=== PATIENT | male | born 1960 | race African-American/Black ===

== ENCOUNTER 2018-08-28 13:16 | Emergency (ER) | payer MEDICARE, MEDICAID ==
[~2018-08-28] VITALS: Ht 193 cm; Wt 181.0 kg
[2018-08-28] MEDS ORDERED: IPRATROPIUM/ALBUTEROL 0.5-3(2.5)MG/3ML NEB HHN ONE (13:45)
[2018-08-28 17:31] VITALS: BP 156/90
== END 2018-08-28 17:34 | disposition home or self-care (01) ==
LOC: ER 13:16
DX: R06.02 Shortness of breath (principal); J18.9 Pneumonia, unspecified organism; J44.9 Chronic obstructive pulmonary disease, unspecified; E11.22 Type 2 diabetes mellitus with diabetic chronic kidney disease; I48.91 Unspecified atrial fibrillation; I13.0 Hypertensive heart and chronic kidney disease with heart failure and stage 1 through stage 4 chronic kidney disease, or unspecified chronic kidney disease; N18.9 Chronic kidney disease, unspecified; I50.9 Heart failure, unspecified; Z79.01 Long term (current) use of anticoagulants; Z95.0 Presence of cardiac pacemaker
CPT/HCPCS: 71045; 94640; 99283; J7620

== ENCOUNTER 2018-11-10 11:11 | Day surgery (SDC) | payer MEDICARE, MEDICAID ==
[~2018-11-10] VITALS: Ht 190.5 cm; Wt 176.9 kg
[2018-11-10 12:39] LABS: EOSINOPHILS % 3.2 % (0.0-5.0); HEMATOCRIT. 37.6 % (42.0-52.0); HEMOGLOBIN. 12.2 g/dL (14.0-18.0); LYMPHOCYTES % 23.1 % (20.0-50.0); MEAN CORPUSCULAR HEMOGLOBIN 27.2 pg (28.0-32.0); MEAN CORPUSCULAR VOLUME 83.5 fL (80.0-94.0); MEAN PLATELET VOLUME 9.1 fl (7.4-10.4); MONOCYTES % 7.9 % (2.0-8.0); NEUTROPHILS % 64.8 % (40.0-76.0); PLATELET 253 x1000/uL (130-400); RED CELL DISTRIBUTION WIDTH 15.8 % (11.6-14.6)
[2018-11-10] MEDS ORDERED: ROSU20TA29 MT (12:44)
[2018-11-10] MEDS ORDERED: POTA8CAP10 MT (12:44)
[2018-11-10] MEDS ORDERED: BENZ100C86 PO ×2 (12:44)
[2018-11-10] MEDS ORDERED: ENAL20TA MT (12:44)
[2018-11-10] MEDS ORDERED: DILT90CA PO (12:44)
[2018-11-10] MEDS ORDERED: RIVA20TA MT (12:44)
[2018-11-10] MEDS ORDERED: DIGO125T82 MT (12:44)
[2018-11-10] MEDS ORDERED: IPRA4AER INH (12:44)
[2018-11-10] MEDS ORDERED: METO-539 MT (12:44)
[2018-11-10] MEDS ORDERED: FURO80TA3 MT (12:44)
[2018-11-10] MEDS ORDERED: ALLO300T2 MT (12:44)
[2018-11-10] MEDS ORDERED: PROPOFOL 200MG/20ML VIAL IV ONE (12:56)
[2018-11-10 13:08] LABS: INR 1.1; PARTIAL THROMBOPLASTIN TIME 40.9 sec (23.4-31.0); PROTHROMBIN TIME 11.1 sec (9.6-11.0)
== END 2018-11-10 15:25 | disposition home or self-care (01) ==
LOC: CARD 11:11
PROVIDERS: ATTEND Internal Medicine Clinical Cardiac Electrophysiology
DX: I48.91 Unspecified atrial fibrillation (principal); I48.1 Persistent atrial fibrillation; E66.01 Morbid (severe) obesity due to excess calories; I10 Essential (primary) hypertension; Z95.0 Presence of cardiac pacemaker
CPT/HCPCS: 36415; 80048; 85025; 85610; 85730; 92960; 93005; J2704